=== PATIENT | male | born 1995 | race Two or more races ===

== ENCOUNTER 2020-05-03 01:55 | Emergency (ER) | payer OTHER ==
[~2020-05-03] VITALS: Ht 152.4 cm; Wt 72.6 kg
[2020-05-03] MEDS ORDERED: MECLIZINE HCL25 MG PO (05:21)
== END 2020-05-03 05:25 | disposition home or self-care (01) ==
LOC: ER 01:55
DX: R42 Dizziness and giddiness (principal)